=== PATIENT | female | born 1995 | race Native Hawaiian/Other Pacific Islander ===

== ENCOUNTER 2018-10-14 13:34 | Outpatient (CLI) | payer OTHER ==
[~2018-10-14 13:34] MED LIST: *LORTAB 7.5/5001 TAB PO
== END 2018-10-14 19:16 | disposition home or self-care (01) ==
LOC: RAD 13:34
DX: S90.31XA Contusion of right foot, initial encounter (principal)

== ENCOUNTER 2019-05-22 21:40 | Emergency (ER) | payer OTHER ==
[~2019-05-22] VITALS: Ht 160 cm; Wt 74.4 kg
[2019-05-22 22:00] VITALS: TEMP 98.1
[2019-05-22 23:24] LABS: POTASSIUM 3.6 mmol/L (3.6-5.2); SODIUM 140 mmol/L (136-145)
[2019-05-22 23:49] LABS: PLATELET COUNT 283 K/uL (152-353)
[2019-05-23 13:50] VITALS: BP 122/78
== END 2019-05-23 13:50 | disposition still patient (30) ==
LOC: ED 21:40
PROVIDERS: Emergency Medicine Emergency Medical Services
DX: F19.10 Other psychoactive substance abuse, uncomplicated (principal); M54.5 Low back pain
CPT/HCPCS: 36415; 80053; 80307; 80320; 80329; 81000; 81025; 85027; 99285

== ENCOUNTER 2022-03-04 18:23 | Emergency (ER) | payer OTHER ==
[~2022-03-04] VITALS: Ht 160 cm; Wt 88.5 kg
[2022-03-04 18:30] VITALS: BP 138/81; TEMP 98.5
[2022-03-04 19:42] LABS: PLATELET COUNT 291 K/uL (152-353)
[2022-03-04 19:58] LABS: POTASSIUM 4.4 mmol/L (3.6-5.2)
== END 2022-03-04 20:25 | disposition left against medical advice (07) ==
LOC: ED 18:23
PROVIDERS: Emergency Medicine
DX: N39.0 Urinary tract infection, site not specified (principal); Z53.29 Procedure and treatment not carried out because of patient's decision for other reasons
CPT/HCPCS: 36415; 80053; 81000; 83690; 85027; 87086; 87088; 96360; 96374; 96375; 99284; J1885; J2405; Q9963

== ENCOUNTER 2023-11-01 22:33 | Emergency (ER) | payer OTHER ==
[~2023-11-01] VITALS: Ht 160 cm; Wt 104.3 kg
[2023-11-01 22:37] VITALS: TEMP 98.3
[2023-11-02] MEDS ORDERED: KETO10TA34 PO (00:50)
[2023-11-02] MEDS ORDERED: CEPH500C20 PO (00:50)
[2023-11-02 01:20] VITALS: BP 135/82
== END 2023-11-02 01:20 | disposition home or self-care (01) ==
LOC: ED 22:33
DX: M79.641 Pain in right hand (principal); S61.431A Puncture wound without foreign body of right hand, initial encounter; W54.0XXA Bitten by dog, initial encounter; Y93.89 Activity, other specified; Y92.89 Other specified places as the place of occurrence of the external cause
CPT/HCPCS: 90471; 90715; 96372; 99283; J1885; J2270; J2405; J7040